=== PATIENT | male | born 1980 | race Caucasian/White ===

== ENCOUNTER 2021-11-17 07:43 | Outpatient (CLI) | payer OTHER ==
[~2021-11-17 07:43] MED LIST: NEURONTIN600 MG PO; VALTREX1000 MG PO; ZOVIRAX5 GM TP
== END 2021-11-17 07:47 | disposition home or self-care (01) ==
LOC: SONOGRAMA 07:43
PROVIDERS: ATTEND Internal Medicine Gastroenterology
DX: R10.9 Unspecified abdominal pain (principal)

== ENCOUNTER 2022-08-19 23:03 | Inpatient (IN) | payer OTHER ==
[~2022-08-19] VITALS: Ht 170.2 cm; Wt 77.1 kg
[2022-08-19] MEDS ORDERED: LISINOPRIL2.5 MG PO (23:57)
--- NOTE | 2022-08-19 23:57 | NUR ---
SE RECIBE PTE ALERTA Y ORIENTADO X3 CUAL REFIERE TENER PEDRO LUIS FISTULA ANAL CON [place] Y DOLOR ESTEPHANIA. SE MANDEEP S/V Y SE UBICA. PTE DE JOCELYN.VINCE STEWART
--- NOTE | 2022-08-20 03:17 | NUR ---
PACIENTE ALERTA Y ORIENTADO X3. MANEJADO POR MISS. KUMAR QUIEN ORIENTA A PACIENTE SOBRE TX Y PROCEDIMIENTO A REALIZAR Y REFIRIO ENTENDER. ADMINISTRA MEDICAMENTOS ORDENADOS POR . REALIZA MUESTRAS DE LABORATORIO BAJO MEDIDAS ASEPTICAS. CANALIZACION PATENTE Y JESENIA DE EDEMA Y ERITEMA. SE MANTIENE BAJO OBSERVACION POR CAMBIOS SIGNIFICATIVOS.
--- NOTE | 2022-08-20 15:15 | NUR ---
SE RECIBE PTE ALERTA ORIENTADO X3.PENDIENTE CONSULTA MEDICA CON DR.NICOLAS SHIPLEY,NPO HASTA LA MEDIA NOCHE.PENDIENTE ADMISION POR ADMITIN EN TURNO.
[2022-08-23] MEDS ORDERED: METRONIDAZOLE500 MG PO (10:39)
[2022-08-23] MEDS ORDERED: CIPRO500 MG PO (10:39)
[2022-08-23] MEDS ORDERED: TRAM1TAB98 PO (10:39)
[2022-08-23] MEDS ORDERED: INTESTINEX680 M1 PO (10:40)
== END 2022-08-23 13:15 | disposition home or self-care (01) | DRG 345 ==
LOC: ER 23:03 → SURH 08-20 21:35
PROVIDERS: ADMIT Surgery; ATTEND Surgery
PROC: BW21YZZ Computerized Tomography (CT Scan) of Abdomen and Pelvis using Other Contrast (ICD-10-PCS; 2022-08-20)
PROC: 0J9B0ZZ Drainage of Perineum Subcutaneous Tissue and Fascia, Open Approach (ICD-10-PCS; 2022-08-21)
PROC: 0DBQ7ZZ Excision of Anus, Via Natural or Artificial Opening (ICD-10-PCS; 2022-08-21)
PROC: 3E0T3BZ Introduction of Anesthetic Agent into Peripheral Nerves and Plexi, Percutaneous Approach (ICD-10-PCS; 2022-08-21)
PROC: 0D9P4ZZ Drainage of Rectum, Percutaneous Endoscopic Approach (ICD-10-PCS; principal; 2022-08-21 07:00)
DX: K60.3 Anal fistula (principal); L03.317 Cellulitis of buttock